=== PATIENT | female | born 1980 | race Caucasian/White ===

== ENCOUNTER 2024-01-23 11:15 | Outpatient (RCR) | payer MEDICAID, SELFPAY ==
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
== END 2024-05-22 23:59 | disposition home or self-care (01) ==
PROVIDERS: PCP Nurse Practitioner Family; Visit Provider Nurse Practitioner Family
DX: M25.552 Pain in left hip (principal); Z51.89 Encounter for other specified aftercare
CPT/HCPCS: 97110; 97140; 97162

== ENCOUNTER 2024-05-08 17:14 | Outpatient (CLI) | payer MEDICAID, SELFPAY | END 2024-05-08 17:15 | disposition home or self-care (01) | PROVIDERS: PCP Nurse Practitioner Family; Visit Provider Nurse Practitioner Family | DX: I10 Essential (primary) hypertension (principal); Z13.220 Encounter for screening for lipoid disorders | CPT/HCPCS: 80053; 80061 ==

== ENCOUNTER 2024-07-16 13:03 | Outpatient (CLI) | payer MEDICAID, SELFPAY ==
--- NOTE | 2024-07-16 13:00 | CRLHL7_ITS ---
For Patients: As a result of the Century Cures Act, medical imaging exams and procedure reports are released immediately into your electronic medical record. You may view this report before your referring provider. If you have questions, please contact your health care provider. BILATERAL SCREENING MAMMOGRAM WITH COMPUTER-AIDED DETECTION AND TOMOSYNTHESIS TECHNIQUE: CC and MLO views were obtained. These mammographic images have been obtained using full-field digital technique. These mammographic images were interpreted with the benefit of computer-aided detection. Breast Tomosynthesis was used in this interpretation. COMPARISON FILM: 03/28/23, 07/29/21, 07/18/21, 06/06/19. FINDINGS: There are scattered areas of fibroglandular density. IMPRESSION: There is no radiographic evidence for malignancy. ASSESSMENT: BI-RADS Category 1: Negative RECOMMENDATION: Routine screening mammogram in 1 year. A lay language report of this examination will be provided to the patient. Nico Crockett M.D. Diagnostic Radiologist [email or web address] SP/Dictated by: Nico Crockett MD @ 07/21/2024 8:37:00 AM (Electronically Signed)
== END 2024-07-16 13:04 | disposition home or self-care (01) ==
LOC: MAMMO 13:04
PROVIDERS: PCP Nurse Practitioner Family; Visit Provider Nurse Practitioner Family
DX: Z12.31 Encounter for screening mammogram for malignant neoplasm of breast (principal)
CPT/HCPCS: 77063; 77067

== ENCOUNTER 2024-07-17 14:22 | Outpatient (CLI) | payer MEDICAID, SELFPAY | END 2024-07-17 14:23 | disposition home or self-care (01) | LOC: LKVREF 14:24 | PROVIDERS: PCP Nurse Practitioner Family; Visit Provider Nurse Practitioner Family | DX: N91.2 Amenorrhea, unspecified (principal) | CPT/HCPCS: 83001 ==

== ENCOUNTER 2024-09-04 07:36 | Day surgery (SDC) | payer MEDICAID, SELFPAY ==
[2024-09-04] VITALS (17 sets, daily range): BP systolic 94–133; BP diastolic 60–88; PULSE 40–58; RESP 12–16; TEMP 36.2–36.8; O2SAT 97–100; BMI 32.5
[2024-09-04 07:56] LABS: Ur HCG Qualitative* Negative (Negative)
[2024-09-04] MEDS: SODIUM CHLORIDE 0.9 % (FLUSH) 10 ML SYRINGE IVF (08:10)
[2024-09-04] MEDS: 0.9 % SODIUM CHLORIDE 500 ML 500 ML 100 ML IV (08:10)
--- NOTE | 2024-09-04 08:41 | W.PM.H&PU ---
History & Physical Update History & Physical Update H&P Reviewed and patient assessed: No changes noted
[2024-09-04] MEDS: BUPIVACAINE 0.25% 30 ML INJECTION (09:25)
--- NOTE | 2024-09-04 10:15 | W.ANESCHARGE ---
Anesthesia Charges Start Date/Time Anesthesia Start Date: 09/04/24 Anesthesia Start Time: 08:51 Stop Date/Time Anesthesia Stop Date: 09/04/24 Anesthesia Stop Time: 10:17
--- NOTE | 2024-09-04 10:16 | W.ANESCHARGE ---
Anesthesia Charges Start Date/Time Anesthesia Start Date: 09/04/24 Anesthesia Start Time: 08:51 Stop Date/Time Anesthesia Stop Date: 09/04/24 Anesthesia Stop Time: 10:17
[2024-09-04] MEDS: fentaNYL 100 MCG/2 ML inj 50 MCG IVP ×2 (10:30→10:41)
--- NOTE | 2024-09-04 10:36 | W.PM.GYNPROC ---
Procedure Note Date of procedure: 09/04/24 Will [facility] bill your pro fee for this procedure?: Yes Pre-op diagnosis: Undesired fertility Post-op diagnosis: Undesired fertility Suspected endometriosis Procedure: Laparoscopic bilateral salpingectomy with peritoneal biopsy Anesthesia: GETA Complications: None Surgeon: Bindu Hartman MD Estimated blood loss (mL): 5 IV fluids (mL): 400 Urine Output (mL): 250 Pathology: specimen obtained, sent to pathology (1. Bilateral Fallopian tubes; 2. Biopsy of cul-de-sac) Condition: stable Disposition: same day Findings: 1. Upon pelvic exam under anesthesia, the cervix and vagina were normal in appearance. Uterus was mobile and anteverted, of normal size and texture. There were no palpable adnexal masses. 2. Upon laparoscopy, survey of the upper abdomen revealed a normal appearance to the inferior edge of the liver, gallbladder and stomach. There was an omental adhesion to the periumbilical area. Bowels were grossly normal appearance, as was the appendix. Survey of the pelvis revealed normal appearance to the uterus. Bilateral tubes and ovaries were normal in appearance. The cul-de-sac exhibited small peritoneal windows filled with brown fluid, and there was a patch of tiny clear vesicles on the peritoneum adjacent to this. The bladder reflection was scarred, consistent in appearance with previous deliveries. Procedure Description: Patient was taken to the operating room with IV running. She was positioned in dorsal lithotomy position with her legs fully supported in Yellofin stirrups. General anesthesia was administered. She was prepped and draped in the usual sterile fashion. Bimanual exam was performed for the above-noted findings. Speculum was inserted. A single-toothed uterine manipulator was inserted through the cervix into the lower uterine segment, and affixed to the anterior cervical lip. Speculum was removed. Montoya catheter was placed. Patient's legs were placed in neutral position. Attention was turned to patient's abdomen. The infraumbilical area was infiltrated with small amount of Marcaine. An infraumbilical incision was made with a scalpel and carried through to the underlying layer of fascia with a hemostat. The 5 mm Fios Kii trocar was assembled with laparoscope within, and insufflator attached. While tenting up the abdomen with the help of a Juanita clamp on the fascia, the trocar was passed through the anterior abdominal wall into the peritoneal cavity. Trocar was removed. Pneumoperitoneum was achieved. Survey of abdomen and pelvis revealed the above-noted findings. Two additional port sites were created. The first was in the patient's left lower quadrant, just superior medial to the left ASIS. The second was a hand's breath superior to and slightly medial to the first. Each was infiltrated with small amount of Marcaine prior to incision. A 5 mm incision was made at each site, making sure the large vessels were out of harm's way. A 5 mm Fios Kii port was inserted at each site, under direct visualization and without complication. The balloon on each of the three ports was inflated, holding each in place. Using the left lower quadrant port site, the camera was inserted and the umbilical port was examined. This was noted to be driven through the omentum in this area. The balloon was deflated and the omentum was released. No bleeding was noted. The left tube was elevated. The blood supply was cauterized and transected with the [employer] cautery device. Dissection was carried laterally to medially through the mesosalpinx, and the tube was ultimately cauterized and transected at the left uterine cornua. Hemostasis was noted. Left tube was removed through the port and sent to pathology. This procedure was repeated on the right side, and hemostasis was again noted. Right tube was removed the port and sent to pathology. The uterus was anteverted and attention was turned to the cul-de-sac. The above described lesions were grasped with Mary forceps and amputated sharply. Hemostasis of this area was achieved with monopolar cautery. The cul-de-sac was filled with approximately 250 mL of saline thereafter. All instruments were removed from the ports, and pneumoperitoneum was released. The ports were removed. The skin of each port site was closed with a subcuticular stitch of 4-0 Monocryl. Surgical glue was applied above this. With the patient's legs back in lithotomy position, the uterine manipulator was removed. Hemostasis was noted. The Montoya catheter was removed. Patient tolerated procedure well and was taken to recovery area in stable condition.
[2024-09-04] MEDS: ONDANSETRON 2 MG/ML inj 4 MG IVP (10:56)
[2024-09-04] MEDS: OXYCODONE 5 MG TABLET PO (11:32)
[2024-09-04] MEDS: ACETAMINOPHEN 500 MG TABLET 1000 MG PO (11:32)
== END 2024-09-04 12:20 | disposition home or self-care (01) ==
LOC: OR 07:38
PROVIDERS: PCP Nurse Practitioner Family; Visit Provider Obstetrics & Gynecology
PROC: (CPT 58661; principal; 2024-09-04 08:45)
DX: Z30.2 Encounter for sterilization (principal); N94.89 Other specified conditions associated with female genital organs and menstrual cycle
CPT/HCPCS: 58661; 49321; 00840; 36415; 81025; 86850; 86900; 86901; 88302; 88305; A9270; J0330; J0665; J1100; J1885; J2405; J2704; J2710; J3010; J7030